=== PATIENT | female | born 1990 | race Caucasian/White ===

== ENCOUNTER 2022-01-23 19:08 | Emergency (ER) | payer MEDICAID, SELFPAY ==
[2022-01-23 19:09] VITALS: BP 115/57; PULSE 97; RESP 20; TEMP 36.6; O2SAT 98; BMI 38.2
--- NOTE | 2022-01-23 19:41 | CM.ED ---
Social Work Note Reason for Referral: No PCP Silvana CASPER in to speak with pt. Pt does have PCP and her PCP is Dr. Davidson. Pt was provided Where to Go When To go Brochure. Sharyn Parsons PARER, [employer]IC
--- NOTE | 2022-01-23 19:43 | ED.VIS.DYS ---
HPI History of Present Illness Chief Complaint: Shortness of Breath Informant: patient Onset/Context/Timing Onset: Weeks (1.5) Context: gradual Timing: Continuous Quality: Positive for Orthopnea Worsened by: Lying flat Relieved by: Albuterol Associated Symptoms Negative for cough, rhinorrhea, post nasal drip, ear pain, fever, sore throat or chills Chest Pain: Positive for Pressure Narrative Narrative: Patient presents with shortness of breath that has been getting worse over the past week and a half. Patient states that it came on gradually. Patient states it has been constant. Patient states it is worse whenever she lays flat. Patient states she was seen at a different emergency department and was given albuterol aerosol there. Patient states that helped. Patient states she has been using her boyfriend's inhaler which also helps. Patient describes her pain as a heaviness and pressure. Patient denies any fevers or chills. Patient denies any cough. Patient states that on her other visit to the emergency department they did a D-dimer which was elevated. Patient states that she had a CTA of her chest done at that time which was negative. [facility] Medical History (Updated 01/23/22 @ 22:[address] Jose Almendarez DO) Endometriosis Home Medications NK 01/23/22 [History Last Taken Unknown] Allergy/AdvReac Type Severity Reaction Status Date / Time caffeine AdvReac Mild tachycardia Verified 01/23/22 19:11 acetaminophen [From Percocet] AdvReac Nausea Verified 01/23/22 19:11 oxycodone [From Percocet] AdvReac Nausea Verified 01/23/22 19:11 Surgical History (Updated 01/23/22 @ 19:[address] Jose Almendarez DO) Hx of laparoscopy Social History Smoking Status: Current every day smoker tobacco type: cigarettes ROS ROS ED Constitutional Constitutional ED: Denies chills or fever(s) Eyes Eyes: Reports blurry vision; Denies change in vision ENT ENT ED: Denies rhinorrhea or sore throat Cardiovascular Cardiovascular: Reports chest pain; Denies palpitations Respiratory/Chest Respiratory/Chest: Reports dyspnea; Denies cough Gastrointestinal Gastrointestinal: Denies nausea or vomiting Genitourinary Genitourinary ED: Denies dysuria or hematuria Musculoskeletal Musculoskeletal: Reports neck pain; Denies back pain Integumentary Reports abscess; Denies rash Neurologic Neurologic: Denies headache(s) or weakness Allergic/Immunologic Allergic/Immunologic ED: Denies mouth swelling or urticaria EXAM Physical Exam Const Vital Signs: 01/23/22 19:09 01/23/22 21:23 01/23/22 21:31 Temperature 97.9 F Temperature Source Temporal Pulse Rate 97 74 85 Respiratory Rate 20 H 14 12 Respiratory Pattern Normal Blood Pressure 115/57 L Blood Pressure Mean 76 Pulse Ox 98 Oxygen Delivery Method Room Air Positive well nourished and well developed General Appearance ED: well developed HEENT Reports moist mucous membranes Neck supple and no JVD Resp normal respiratory effort and clear to auscultation bilaterally Cardio regular rate, regular rhythm and no murmurs GI normal to inspection, nondistended, normoactive bowel sounds and non-tender Palpation: soft Extremity normal to inspection General Extremety ED: Negative for edema or tenderness General Extremity: Negative for edema Neuro oriented x3, CN's II-XII intact bilaterally and no sensory deficits noted Sensorium / Orientation: alert Motor Exam: strength 5/5 throughout Psych mental status grossly normal Skin no rashes or lesions noted MDM MDM MDM Narrative Medical decision making narrative: EKG was obtained. On my interpretation, it showed a normal sinus rhythm with a rate of 83. [place] interval, QRS interval, and QTc intervals were all normal. [place] was normal. There are no acute ST or T wave changes. CBC shows a slight anemia with a hemoglobin of 11.6 and hematocrit of 36.4. Comprehensive metabolic profile was within normal limits. High-sensitivity troponin was normal. CTA of the chest was obtained. There is no evidence of pulmonary embolism. There is no infiltrate noted. This was interpreted by the radiologist and reviewed by myself. Patient was given a DuoNeb aerosol here. Patient feels better on reevaluation. Patient was instructed to follow-up with her primary care physician in 5 to 7 days. Patient understood and was agreeable with the plan. All questions were answered. Lab Data Attestation: I reviewed the patient's lab results. Labs: Laboratory Results - last 24 hr 01/23/22 01/23/22 20:02 20:02 WBC 10.1 RBC 3.97 L Hgb 11.6 L Hct 36.4 L MCV 91.7 MCH 29.2 MCHC 31.9 L RDW Std Deviation 45.5 H RDW Coeff of Lico 13.5 Plt Count 240 MPV 10.6 Immature Gran % (Auto) 0.400 Neut % (Auto) 47.4 Lymph % (Auto) 38.0 [place] % (Auto) 10.3 H Eos % (Auto) 3.5 Baso % (Auto) 0.4 Absolute Neuts (auto) 4.8 Absolute Lymphs (auto) 3.84 Nucleated RBC % 0 Sodium 139 Potassium 3.5 Chloride 109 H Carbon Dioxide 21.0 Anion Gap 9 BUN 14 Creatinine 0.80 Estim Creat Clear Calc 93.37 Est GFR (MDRD) Af Amer 109 Est GFR (MDRD) Non-Af 90 BUN/Creatinine Ratio 17.6 Glucose 139 H Calcium 9.0 Total Bilirubin 0.10 L AST 16 ALT 33 Alkaline Phosphatase 58 Troponin I High Sens < 3 L Total Protein 7.0 Albumin 3.4 Globulin 3.6 Albumin/Globulin Ratio 0.9 Radiography Diagnostic Testing: Clinical Impression(s) from Imaging Studies Chest CTA 01/23/22 19:49 IMPRESSION: No demonstrated pulmonary embolism. Note that there is suboptimal density of contrast measuring 234 [place] units in the main pulmonary artery but with significantly decreased density in the bilateral lower lobe segmental arteries which could potentially obscure pulmonary emboli. No secondary findings to suggest pulmonary embolism. Pulmonary embolism is unlikely. No evidence of acute cardiopulmonary disease. Electronically Signed: Yeyo Mckeon DO at 20:56 EDT , EKG Initial EKG: Attestation: I personally reviewed and interpreted this EKG as follows: Interpretation: Sinus Rhythm (83) and No Acute Injury Pattern Discharge Plan Triage Chief Complaint: Shortness of Breath ED Provider: Jose Almendarez Dx/Rx/DC Orders Clinical Impression: Dyspnea, Chest pain Instructions: ED Dyspnea Prescriptions: No Action NK Primary Care Provider: Raul Davidson Referrals: Raul Davidson DO [Primary Care Provider] - 3-5 Days Disposition Disposition: Home, Self Care
--- NOTE | 2022-01-23 19:48 | EKG12_ITS ---
Test Reason : CP Blood Pressure : / mmHG Vent. Rate : 083 BPM Atrial Rate : 083 BPM P-R Int : 150 ms QRS Dur : 098 ms QT Int : 386 ms P-R-T Axes : 030 018 031 degrees QTc Int : 453 ms Normal sinus rhythm Low voltage QRS Borderline ECG Confirmed by GRADY DUFFY, NAOMI ([id number]), general expeditor GENESIS SALINAS ([id number]) on 01/26/2022 8:20:16 AM Referred By: MAEGAN Confirmed By:NAOMI RASMUSSEN MD
--- NOTE | 2022-01-23 19:49 | CT_ITS ---
STUDY: CTA CHEST REASON FOR EXAM: Female, 31 years old. Dyspnea RADIATION DOSAGE (If Supplied By Facility): CTDIvol = ( 11.59 ) mGy, DLP = ( 549.56 ) mGycm TECHNIQUE: The examination was performed with the intravenous administration of IV 100mL Isovue-370. Post-processing of the angiographic images was performed, with multiplanar reformation and 3D reconstruction. Individualized dose optimization techniques were used for this CT. COMPARISON: Chest x-ray 02/02/2013 FINDINGS: Suboptimal density of contrast in the pulmonary arteries and without significant motion; decrease sensitivity of the exam. No pulmonary artery filling defect to suggest pulmonary embolism. There is no evidence of right heart strain. Normal size heart. No pericardial fluid. No mediastinal or hilar lymphadenopathy. No mass or filling defect. No bronchiectasis. No peribronchial thickening. Normal lung volumes without airtrapping. No airspace opacity or abnormal interstitial pattern. No suspicious nodule or mass. There are several, perifissural nodules in the dependent periphery of the right lower lobe, less than 4 mm in maximum diameter, consistent with benign findings. No pleural effusion or pneumothorax. Thyroid gland and base of the neck are within normal limits. No axillary lymphadenopathy. No fracture or focal osseous lesion. Visualized solid and hollow viscus organs are within normal limits of the exam. CT/CTA Chest W/WO Contrast IMPRESSION: No demonstrated pulmonary embolism. Note that there is suboptimal density of contrast measuring 234 [place] units in the main pulmonary artery but with significantly decreased density in the bilateral lower lobe segmental arteries which could potentially obscure pulmonary emboli. No secondary findings to suggest pulmonary embolism. Pulmonary embolism is unlikely. No evidence of acute cardiopulmonary disease. Electronically Signed: Yeyo Mckeon DO at 20:56 EDT ,
[2022-01-23 20:12] LABS: Absolute Lymphocyte Count 3.84 X10^3/uL (0.83-4.51); Absolute Neutrophil Count 4.8 X10^3/uL (2.0-7.7); Basophil# 0.04 X10^3/uL; Basophil% 0.4 % (0-1); Eosinophil# 0.35 X10^3/uL; Eosinophils% 3.5 % (0-5); Hematocrit 36.4 % (37-47); Hemoglobin 11.6 g/dL (12.0-15.0); Lymphocyte # 3.84 X10^3/ul (0.83-4.51); Mean Corp Hgb Conc 31.9 g/dL (32-36); Mean Corpuscular Hgb 29.2 pg (27.0-32.0); Mean Corpuscular Volume 91.7 fL (81-99); Mean Platelet Vol. 10.6 fl (6.2-12.0); Monocyte# 1.04 X10^3/uL; Monocyte% 10.3 % (0-10); NRBC Flagged by Analyzer 0 % (0-5); Neutrophil # 4.79 X10^3/uL (2.7-7.7); Neutrophil % 47.4 % (47-70); Platelet Count 240 K/mm3 (150-450); RBC Distribution Width CV 13.5 % (11.6-14.6); RBC Distribution Width SD 45.5 fl (35.1-43.9); Red Blood Count 3.97 M/mm3 (4.2-5.4); White Blood Count 10.1 K/mm3 (4.4-11.0)
[2022-01-23 20:33] LABS: ALB/GLOB Ratio 0.9 RATIO (0.9-2.4); AST(SGOT) 16 U/L (15-37); Alanine Aminotransfer ALT/SGPT 33 U/L (13-56); Albumin, Serum 3.4 g/dL (3.2-5.0); Alkaline Phosphatase 58 U/L (45-117); Anion Gap 9 (5-15); BUN 14 mg/dL (7-18); BUN/Creat Ratio 17.6 RATIO (10-20); Chloride 109 mmol/L (98-107); EST Glomerular Filtration Rate 90 mL/min (>60); Est Glom Filt Rate - Afr Amer 109 mL/min (>60); Estimated Creatinine Clearance 93.37 ml/min; Globulin 3.6 g/dL (2.2-4.2); Glucose 139 mg/dL (74-106); Potassium 3.5 mmol/L (3.5-5.1); Sodium Level 139 mmol/L (136-145); Troponin-I HS < 3 pg/mL (3.0-54.0)
[2022-01-23] MEDS: 0.9% Normal Saline 1,000 ML 1000 ML IV (20:34)
[2022-01-23 21:23] VITALS: PULSE 74; RESP 14
[2022-01-23] MEDS: Ipratropium/Albuterol Sulfate 3 ML AMPUL.NEB INHALATION (21:28)
[2022-01-23 21:31] VITALS: PULSE 85; RESP 12
== END 2022-01-23 22:11 | disposition home or self-care (01) ==
PROVIDERS: Emergency Provider Emergency Medicine; PCP Student in an Organized Health Care Education/Training Program; Visit Provider Emergency Medicine
DX: R06.00 Dyspnea, unspecified (principal); R07.9 Chest pain, unspecified; D64.9 Anemia, unspecified; F17.210 Nicotine dependence, cigarettes, uncomplicated
CPT/HCPCS: 71275; 80053; 84484; 85025; 93005; 94640; 96360; 99284; J7030; Q9967; A4216

== ENCOUNTER 2023-10-12 16:46 | Emergency (ER) | payer OTHER, MEDICAID, SELFPAY ==
[2023-10-12 16:47] VITALS: BP 116/66; PULSE 83; RESP 14; TEMP 36.2; O2SAT 97; BMI 38.8
--- NOTE | 2023-10-12 17:20 | RAD_ITS ---
STUDY: X-RAY CHEST REASON FOR EXAM: Female, 33 years old. SOB TECHNIQUE: AP portable COMPARISON: February 02, 2023 FINDINGS: Mild nonspecific bilateral perihilar interstitial thickening possibly inflammatory.. There is no demonstrated pleural abnormality. Normal size heart. Normal mediastinum and liliana. Normal visualized pulmonary arteries. Normal visualized aortic arch and descending thoracic aorta. Normal visualized thoracic spine. Normal visualized ribs, clavicles, and shoulders. There is no demonstrated abnormality of the visualized soft tissue structures of the upper abdomen. RAD/Chest 1 View (Portable) IMPRESSION: Mild nonspecific bilateral perihilar interstitial thickening.. No focal infiltration. Electronically Signed: Chad Goncalves MD at 18:02 EDT ,
[2023-10-12 17:24] LABS: Absolute Lymphocyte Count 3.56 X10^3/uL (0.83-4.51); Absolute Neutrophil Count 5.6 X10^3/uL (2.0-7.7); Basophil# 0.05 X10^3/uL; Basophil% 0.5 % (0-1); Eosinophil# 0.18 X10^3/uL; Eosinophils% 1.7 % (0-5); Hematocrit 37.5 % (37-47); Lymphocyte # 3.56 X10^3/ul (0.83-4.51); Lymphocyte % 34.4 % (19-41); Mean Corpuscular Hgb 29.2 pg (27.0-32.0); Mean Corpuscular Volume 91.2 fL (81-99); Mean Platelet Vol. 10.3 fl (6.2-12.0); Monocyte# 0.91 X10^3/uL; Monocyte% 8.8 % (0-10); NRBC Flagged by Analyzer 0 % (0-5); Neutrophil # 5.62 X10^3/uL (2.7-7.7); Neutrophil % 54.2 % (47-70); Platelet Count 276 K/mm3 (150-450); RBC Distribution Width CV 13.5 % (11.6-14.6); RBC Distribution Width SD 45.1 fl (35.1-43.9); Red Blood Count 4.11 M/mm3 (4.2-5.4); White Blood Count 10.4 K/mm3 (4.4-11.0)
[2023-10-12 17:35] VITALS: BP 116/66; PULSE 83; RESP 14; TEMP 36.2; O2SAT 97
--- NOTE | 2023-10-12 17:38 | ED.VIS.DYS ---
HPI History of Present Illness Chief Complaint: Shortness of Breath Narrative Narrative: 33-year-old female, smoker, presents from her primary care provider's office with concern for pulmonary embolism. She states that 2 weeks ago she contracted COVID, and is still coughing, and feels short of breath. She reports increasing shortness of breath, dizziness, and was 95% on room air and her primary care provider's office. She denies any leg swelling, no exacerbating or alleviating factors. She states she has not been able to smoke over the last few days because that is when her increased shortness of breath and dizziness increased. PFSH PFS Medical History Endometriosis Home Medications NK 01/23/22 [History Last Taken Unknown] Allergy/AdvReac Type Severity Reaction Status Date / Time caffeine AdvReac Mild tachycardia Verified 10/12/23 16:48 acetaminophen [From Percocet] AdvReac Nausea Verified 10/12/23 16:48 oxycodone [From Percocet] AdvReac Nausea Verified 10/12/23 16:48 Surgical History Hx of laparoscopy Social History Smoking Status: Current every day smoker tobacco type: cigarettes ROS ROS ED ROS Narrative Constitutional: No fever, no chills. HEENT: No sore throat. No neck pain. No loss of vision. No rhinorrhea. Cardiovascular: No chest pain. No palpitations. No pedal edema. Respiratory: Positive productive cough, increasing shortness of breath. Abdominal: No abdominal pain. No nausea. No vomiting. Genitourinary: No dysuria. No hematuria. Musculoskeletal: No myalgias. No arthralgias. Neurologic: No headaches. Positive dizziness and lightheadedness. Skin: No rash. No change in color. Psychiatric: No depression. No anxiety. EXAM Physical Exam Narrative Exam Narrative: Afebrile. Vital signs noted. HEENT: Normocephalic. Atraumatic. PERRL, EOMI. Neck soft and supple. No point tenderness or step off. Cardiovascular: Regular rate and rhythm. No murmurs, rubs, or gallops appreciated. Respiratory: No tachypnea. Lungs clear to auscultation bilaterally. Gastrointestinal: Abdomen soft, nontender, with normoactive bowel sounds. No rebound or guarding. Neurological: Awake. Alert. Nonfocal, nonlateralizing. Skin: No rash. Normal color. No pallor. Musculoskeletal: No pedal edema. Full range of motion extremities. Const Vital Signs: 10/12/23 16:47 10/12/23 17:35 10/12/23 17:35 Temperature 97.2 F L 97.2 F L Temperature Source Temporal Temporal Pulse Rate 83 83 Respiratory Rate 14 14 Blood Pressure 116/66 116/66 Blood Pressure Mean 82 82 Pulse Ox 97 97 97 Oxygen Delivery Method Room Air Room Air Room Air 10/12/23 17:35 Temperature Temperature Source Pulse Rate Respiratory Rate Blood Pressure Blood Pressure Mean Pulse Ox 97 Oxygen Delivery Method Room Air MDM MDM MDM Narrative Medical decision making narrative: Nursing protocol labs were ordered. This included D-dimer. Her pulse ox is 97% on room air here. I have low suspicion for pulmonary embolism because she is not tachycardic or hypoxic. Smoking cessation was discussed. I reviewed her laboratory work and she has normal white count of 10.4, hemoglobin normal at 12.0, hematocrit 37.5, platelet count normal at 276. D-dimer is normal at 0.30. I do not feel that she needs a CTA of the chest given her negative D-dimer. I have low suspicion for pulmonary embolism as stated previously. Review of her BMP shows normal sodium of 139, potassium 3.8, glucose appropriately elevated at 95 with a normal anion gap of 6. Chest x-ray in 1 view interpreted by myself independently shows no evidence of consolidation or pneumothorax. I reviewed the radiology report which confirms my independent interpretation. EKG obtained and interpreted by myself demonstrates normal sinus rhythm at 76 bpm without ectopy or acute ST changes. No STEMI. At this point in time, I am unsure as to the cause of her dyspnea and subjective shortness of breath with dizziness, but I do feel that she can be discharged to follow-up with her primary care provider. Once again, I do not feel that she needs imaging for pulmonary embolism given her negative D-dimer, not tachycardic, not hypoxic. Disposition is discharged home in stable condition. Return instructions to the emergency department were reviewed. History & Record Review Discussion w/independent historian: Patient Additional record(s) reviewed:: Prior ED visit Lab Data Attestation: I reviewed the patient's lab results. Labs: Laboratory Results - last 24 hr 10/12/23 17:15 WBC 10.4 RBC 4.11 L Hgb 12.0 Hct 37.5 MCV 91.2 MCH 29.2 MCHC 32.0 RDW Std Deviation 45.1 H RDW Coeff of Lico 13.5 Plt Count 276 MPV 10.3 Immature Gran % (Auto) 0.400 Neut % (Auto) 54.2 Lymph % (Auto) 34.4 [place] % (Auto) 8.8 Eos % (Auto) 1.7 Baso % (Auto) 0.5 Absolute Neuts (auto) 5.6 Absolute Lymphs (auto) 3.56 Nucleated RBC % 0 D-Dimer Quant (PE/DVT) 0.30 Sodium 139 Potassium 3.8 Chloride 104 Carbon Dioxide 29.0 Anion Gap 6 BUN 10 Creatinine 0.79 Estim Creat Clear Calc 124.66 Est GFR (MDRD) Af Amer 108 Est GFR (MDRD) Non-Af 90 BUN/Creatinine Ratio 12.6 Glucose 95 Calcium 9.3 Radiography Diagnostic Testing: Clinical Impression(s) from Imaging Studies Chest X-Ray 10/12/23 17:20 IMPRESSION: Mild nonspecific bilateral perihilar interstitial thickening.. No focal infiltration. Electronically Signed: Chad Goncalves MD at 18:02 EDT Reading Location ID and State: [address] [place] [address] Tel , Service support , Discharge Plan Triage Chief Complaint: Shortness of Breath ED Provider: Peterson Lira Dx/Rx/DC Orders Clinical Impression: Shortness of breath, Dyspnea Instructions: ED Dyspnea Prescriptions: No Action NK Primary Care Provider: Raul Davidson Referrals: Raul Davidson, DO [Primary Care Provider] - 1 Week if not improving Activity Restrictions/Additional Instructions: Stop smoking Disposition Disposition: Home, Self Care
[2023-10-12 17:40] LABS: Anion Gap 6 (5-15); BUN 10 mg/dL (7-18); BUN/Creat Ratio 12.6 RATIO (10-20); Calcium,Total 9.3 mg/dL (8.5-10.1); Chloride 104 mmol/L (98-107); Creatinine, Serum 0.79 mg/dL (0.55-1.02); EST Glomerular Filtration Rate 90 mL/min (>60); Est Glom Filt Rate - Afr Amer 108 mL/min (>60); Estimated Creatinine Clearance 124.66 ml/min; Glucose 95 mg/dL (74-106); Potassium 3.8 mmol/L (3.5-5.1); Sodium Level 139 mmol/L (136-145)
--- NOTE | 2023-10-12 17:41 | EKG12_ITS ---
Test Reason : SOB Blood Pressure : / mmHG Vent. Rate : 076 BPM Atrial Rate : 076 BPM P-R Int : 178 ms QRS Dur : 094 ms QT Int : 404 ms P-R-T Axes : 027 000 021 degrees QTc Int : 454 ms Normal sinus rhythm Normal ECG Confirmed by Yeyo Fonseca ([id number]), editor in chief BRANDON GREENE ([id number]) on 10/14/2023 2:05:16 PM Referred By: Confirmed By:Yeyo Fonseca
[2023-10-12 19:38] VITALS: BP 101/53; PULSE 83; RESP 14; TEMP 36.2; O2SAT 97
[2023-10-12 19:42] VITALS: O2SAT 97
--- OUTSIDE RECORDS SUMMARY | 2023-10-12 23:05 | XMS RPT_ITS | CCD ---
Author Name Unknown Address [address] [place] [address] Organization [facility] Care Team Providers Care Supervisor Statement Clerks Name Role Phone ANNALeida HODA HeartDarius Unavailable Unavailable PHYSICIAN, NONE Unavailable Unavailable Ralu Campa DO Primary Care Provider [phone] Raul Campa DO Primary Care Provider [phone] ESPAÑA, LISE LOCAL SUPERINTENDENT%C Consulting Unavailable ESPAÑA, LISE LOCAL SUPERINTENDENT%C Referring Unavailable RAMAN BURNS C Admitting Unavailable GRANT RAMAN C Primary Care Unavailable RAMAN BURNS C Attending Unavailable PROVIDER, UNKNOWN Consulting Unavailable ESPAÑA, LISE LOCAL SUPERINTENDENT%C Referring Unavailable IVA MCNEIL KLUEVER Admitting Unavail able TARUN KILWAY KLUEVER Primary Care Unavail able TARUN KILTRISTEN KLUEVER Attending Unavail able ESPAÑA, LISE LOCAL SUPERINTENDENT%C Consulting Unavailable PROVIDER, UNKNOWN Consulting Unavailable JAYCEE ADAMS Attending Unavailable LOKESH RAUL L Primary Care Unavailable JAYCEE ADAMS Referring Unavailable RAUL CAMPA Primary Care Unavailable JAYCEE ADAMS Attending Unavailable LOKESH RAUL Humberto Primary Care Unavailable ESPAÑA, LISE Referring Unavailable LOKESH, RAUL L Primary Care Unavailable LOKESH RAUL L Attending Unavailable LOKESH RAUL L Referring Unavailable LOKESH RAUL Humberto Primary Care Unavailable RAUL CAMPA Primary Care Unavailable SISI TOBAR Referring Unavailable CAMPA, RAUL Humberto Primary Care Unavailable SONIA CASTRO Attending Unavailable CAMPA, RAUL L Primary Care Unavailable ADAM, SISI Referring Unavailable SISI TOBAR Attending Unavailable LOKESH, RAUL L Primary Care Unavailable Allergies Allergy Classification Reported Allergen(s) Allergy Type Date of Onset Reaction(s) Facility (16 sources) Caffeine; Translations: [CAFFEINE] Drug Allergy 10-13-2012 Unknown [facility] (1 source) Caffeine Drug Allergy [facility] (1 source) Morphine Drug Allergy [facility] Medications Current Medications Medication Drug Class(es) Dates Sig (Normalized) Sig (Original) pregabalin 25 mg oral capsule (2 sources) Start: 09-28-2023 End: 10-28-2023 take 1 capsule by mouth twice daily pregabalin (LYRICA) 25 mg capsule Indications: Chronic bilateral low back pain, unspecified whether sciatica present , Pain in both thighs , Bilateral leg paresthesia Take 1 capsule by mouth two times a day for 30 days. 60 capsule 1 09/28/2023 10/28/2023 Active Completed/Discontinued Medications Medication Drug Class(es) Dates Sig (Normalized) Sig (Original) gabapentin 100 mg oral capsule (11 sources) Anti-epileptic Agent Start: 11-03-2022 End: 01-07-2024 take 1 capsule by mouth in the morning, then take 3 capsules by mouth at bedtime gabapentin (NEURONTIN) 100 mg capsule Indications: Chronic bilateral low back pain, unspecified whether sciatica present , Exacerbation of chronic back pain Take 1 capsule by mouth in the morning. Take 3 capsules by mouth at bedtime. 56 capsule 3 06/20/2023 09/28/2023 Discontinued Problems Active Problems Problem Classification Problem Date Documented Date Episodic/Chronic Anxiety disorders (13 sources) Mixed anxiety and depressive disorder; Translations: [Anxiety disorder, unspecified] Onset: 11-03-2022 Chronic Diseases of white blood cells (2 sources) Leukocytosis; Translations: [Elevated white blood cell count, unspecified] Onset: 10-07-2022 Chronic Disorders of lipid metabolism (2 sources) Hypertriglyceridemia; Translations: [Pure hyperglyceridemia] Onset: 08-27-2023 06-23-2023 Chronic Headache; including migraine (15 sources) Migraine; Translations: [Migraine, unspecified, not intractable, without status migrainosus] Onset: 12-14-2012 12-14-2012 Chronic Immunizations and screening for infectious disease (1 source) Patient encounter status; Translations: [Encounter for screening for human papillomavirus (HPV)] Episodic Menstrual disorders (1 source) Menorrhagia; Translations: [Excessive and frequent menstruation with regular cycle] Chronic Miscellaneous mental health disorders (8 sources) Psychophysiologic insomnia; Translations: [Insomnia due to other mental disorder] Onset: 11-03-2022 Chronic Mood disorders (1 source) Unspecified mood [affective] disorder; Translations: [Mood insomnia (HCC)] Onset: 11-03-2022 Chronic Mood disorders (1 source) Mood disorders; Translations: [Anxiety and depression] Onset: 11-03-2022 Other connective tissue disease (1 source) Pain of bilateral thighs; Translations: [Pain in right thigh] 09-28-2023 Episodic Other nervous system disorders (2 sources) Other chronic pain; Translations: [Chronic bilateral low back pain, unspecified whether sciatica present] Onset: 11-08-2022 Chronic Other nervous system disorders (1 source) Paresthesia of left lower limb; Translations: [Paresthesia of skin] 09-28-2023 Episodic Other nervous system disorders (1 source) Paresthesia of lower extremity; Translations: [Paresthesia of skin] 09-28-2023 Episodic Other nutritional; endocrine; and metabolic disorders (15 sources) Obese class I; Translations: [Obesity, unspecified] Onset: 01-17-2013 01-17-2013 Chronic Other screening for suspected conditions (not mental disorders or infectious disease) (1 source) Cancer cervix screening status; Translations: [Encounter for screening for malignant neoplasm of cervix] Episodic Other skin disorders (1 source) Hidradenitis suppurativa; Translations: [Hidradenitis suppurativa] Episodic Other upper respiratory disease (15 sources) Allergic rhinitis; Translations: [Allergic rhinitis, unspecified] Onset: 01-17-2013 01-17-2013 Chronic Unclassified (1 source) Chronic bilateral low back pain, unspecified whether sciatica present; Translations: [Chronic bilateral low back pain, unspecified whether sciatica present] Onset: 11-08-2022 Past or Other Problems Problem Classification Problem Date Documented Date Episodic/Chronic Cancer of cervix (15 sources) Atypical squamous cells of undetermined significance on cervical Papanicolaou smear; Translations: [Atypical squamous cells of undetermined significance on cytologic smear of cervix (ASC-US)] Onset: 11-26-2015 11-26-2015 Episodic Cancer of other female genital organs (15 sources) Cervicovaginal cytology: Low grade squamous intraepithelial lesion; Translations: [Low grade squamous intraepithelial lesion on cytologic smear of vagina (LGSIL)] Onset: 12-17-2016 12-17-2016 Episodic Residual codes; unclassified (15 sources) Tobacco user; Translations: [Tobacco use] Onset: 01-17-2013 01-17-2013 Episodic Spondylosis; intervertebral disc disorders; other back problems (8 sources) Chronic low back pain; Translations: [Chronic bilateral low back pain, unspecified whether sciatica present] Onset: 11-08-2022 Episodic Results Test Name Value Interpretation Reference Range Facil ity Vital Signs Date Time Vital Sign Value Performing Clinician Faci lity 06-20-2023 15:58-0500 Body height 168 cm Sisi Tobar VP PRODUCT MARKETING.ACCOUNTING ADMINISTRATIVE ASSISTANT Work Phone: [facility] 06-20-2023 15:58-0500 Body weight 107.5 kg Sisi Tobar VP PRODUCT MARKETING.ACCOUNTING ADMINISTRATIVE ASSISTANT Work Phone: [facility] 06-20-2023 15:58-0500 Diastolic blood pressure 82 mm[Hg] Sisi Tobar VP PRODUCT MARKETING.ACCOUNTING ADMINISTRATIVE ASSISTANT Work Phone: [facility] 06-20-2023 15:58-0500 Heart rate 93 /min Sisi Tobar VP PRODUCT MARKETING.ACCOUNTING ADMINISTRATIVE ASSISTANT Work Phone: [facility] 06-20-2023 15:58-0500 SaO2% (BldA) [Mass fraction] 97 % Sisi Tobar VP PRODUCT MARKETING.ACCOUNTING ADMINISTRATIVE ASSISTANT Work Phone: [facility] 06-20-2023 15:58-0500 Systolic blood pressure 108 mm[Hg] Sisi Tobar VP PRODUCT MARKETING.ACCOUNTING ADMINISTRATIVE ASSISTANT Work Phone: [facility] 03-18-2022 14:22-0400 Body height 167.6 cm Sonia Castro MD Work Phone: [facility] 03-18-2022 14:22-0400 Body weight 104.69 kg Sonia Castro MD Work Phone: [facility] 03-18-2022 14:22-0400 Diastolic blood pressure 68 mm[Hg] Sonia Castro MD Work Phone: [facility] 03-18-2022 14:22-0400 Systolic blood pressure 100 mm[Hg] Sonia Castro MD Work Phone: [facility] Encounters Encounter Date Encounter Type Care Provider Facility Start: 10-12-2023 End: 10-12-2023 ambulatory Nurse Intm/Famp Triage [facility] Work Phone: [facility] Start: 10-12-2023 End: 10-12-2023 Follow-up encounter Nurse Intm/Famp Triage [facility] Work Phone: Nurse Phone Triage Procedures Date Procedure Procedure Detail Performing Clinician Start: 06-20-2021 Adult depression screening assessment Sonia Castro MD Work Phone: Plan of Treatment Date Care Activity Detail Author Start: 07-22-2028 Screening for malign ant neoplasm of cervix [facility] Start: 03-18-2027 HPV TESTING HPV TESTING [facility] Start: 03-18-2027 PAP TESTING PAP TESTING [facility] Start: 01-28-2026 Urine microalbumin profile [facility] Start: 10-11-2024 Covid-19 Vaccine ( season) Covid-19 Vaccine ( season) [facility] Immunizations Immunization Date Immunization Notes Care Provider Fa debora 05-26-2018 influenza virus vaccine, unspecified formulation Sonia Castro MD Work Phone: [facility] 04-21-2016 influenza, injectabl e, quadrivalent, contains preservative Sonia Castro MD Work Phone: [facility] 01-29-2016 tetanus toxoid, redu celestine diphtheria toxoid, and acellular pertussis vaccine, adsorbed Sonia Castro MD Work Phone: [facility] Work Phone: 01-17-2013 tetanus toxoid, redu celestine diphtheria toxoid, and acellular pertussis vaccine, adsorbed Sonia Castro MD Work Phone: [facility] Work Phone: 10-11-2012 hepatitis B vaccine, adult dosage Sonia Castro MD Work Phone: [facility] 10-11-2012 hepatitis B vaccine, unspecified formulation Sonia Castro MD Work Phone: [facility] 10-05-2012 influenza virus vaccine, unspecified formulation Sonia Castro MD Work Phone: [facility] Payers Date Payer Category Payer Unknown [id number] 2022 Private Health Insurance [id number] 2022 Private Health Insurance [id number] 2019 Medicaid [id number] 2018 Unknown [id number] 1992 Unknown [id number] 1992 Unknown [id number] 1992 Unknown [id number] Social History Date Type Detail Facility Start: 04-06-2018 End: 09-24-2022 Tobacco smoking status NHIS Light tobacco smoker [facility] Work Phone: History of tobacco use Cigarette Smoker C [facility] Work Phone: Start: 04-06-2018 End: 09-24-2022 Tobacco use and exposure Smokeless tobacco non-user [facility] Work Phone: Start: 03-18-2022 End: 10-12-2023 Alcohol intake Current non-drinker of alcohol (finding) [facility] Start: 06-20-2021 End: 09-23-2022 History SDOH Alcohol Frequency 1 [facility] Start: 06-20-2021 End: 09-23-2022 History SDOH Social Connections Phone 5 [facility] Start: 06-20-2021 End: 09-23-2022 History SDOH Social Connections Get Together 2 [facility] Start: 06-20-2021 End: 09-23-2022 History SDOH Social Connections Living 8 [facility] Start: 06-20-2021 History SDOH Physica l Activity MPS 6 [facility] Start: 06-20-2021 History SDOH Financial 4 [facility] Start: 04-01-2020 Education 15 [facility] Start: 01-01-2016 End: 09-24-2022 Tobacco Comment smokes 1-2 cigarettes per day [facility] Start: 1990 Sex Assigned At Female C [facility] Start: 03-08-2022 End: 03-18-2022 Exposure to SARS-CoV-2 (event) Not sure [facility] Start: 09-23-2022 History SDOH Social Connections Phone 3 [facility] Start: 07-06-2020 End: 09-22-2022 History of Social function [facility] Start: 07-06-2020 End: 09-22-2022 Social connection and isolation panel [facility] Do you belong to any clubs or organizations such as latter-day groups, unions, fraternal or athletic groups, or school groups? No [facility] Are you now , , , , never or living with a partner? Living with partner [facility] How often to you hav e a drink containing alcohol? Monthly or less [facility] How many standard dr inks containing alcohol do you have on a typical day? 1 or 2 [facility] How often do you hav e 6 or more drinks on 1 occasion? Never [facility] How hard is it for y ou to pay for the very basics like food, housing, medical care, and heating Somewhat hard [facility] Adult Depression Screening Assessment 6 [facility] Work Phone: Do you feel stress - tense, restless, nervous, or anxious, or unable to sleep at night because your mind is troubled all the time - these days [OSQ] Very much [facility] (I/We) worried wheth er (my/our) food would run out before (I/we) got money to buy more. Never true [facility] Start: 03-10-2020 Gender identity Identifies as female gender (finding) [facility] Are you now , , , , never or living with a partner? [facility] How hard is it for y ou to pay for the very basics like food, housing, medical care, and heating Not very hard [facility] Clinical Notes 12-24-2016 to 10-12-2023 Telephone Encounter - Katrin Mcintosh RN - 10/12/2023 9:53 AM Raul Thorne DO - 09/28/2023 4:41 PM ESTTelephone Encounter - Adilia Navarro OCCA - 06/24/2023 9:17 AM EST Note Date & Type Note Facility 10-12-2023 Miscellaneous Notes Patient calls for lingering Covid symptoms. Nurse triage completed. Protocol recommends see provider within 24 hours. Appt scheduled. Care advice reviewed. Patient verbalized understanding. Reason for Disposition [1] PERSISTING SYMPTOMS OF COVID-19 AND [2] symptoms WORSE Answer Assessment - Initial Assessment Questions 1. COVID-19 ONSET: Two weeks ago 2. DIAGNOSIS CONFIRMATION: At home test. 3. MAIN SYMPTOM:Exhaustion is biggest concern. SOB with climbing stairs. Slight cough. Patient has had Covid numerous times from [place] [employer] and symptoms have never lingered this long or have atleast started to improve. 4. SYMPTOM ONSET:Two weeks ago 5. [id number]: Exhaustion is getting worse Body is worn out. Other symptoms have remained the same. 6. RECENT MEDICAL VISIT: Not evaluated. 7. COUGH: Yes but not productive. 8. FEVER: No 9. BREATHING DIFFICULTY: - MILD: No SOB at rest, mild SOB with walking, speaks normally in sentences, can lie down, no retractions, pulse < 100. Reports winded with climbing stairs. Has to rest once reaches the top. 10. OTHER SYMPTOMS: Fatigue, weakness, nerve pain per usual, No headaches. 11. HIGH RISK DISEASE: Obesity. No asthma, heart or lung disease, weak immune system. 12. VACCINE: NA 13. : No, Patient reports to a trans man. 14. O2 SATURATION MONITOR: Hasn't done that Protocols used: Covid-19 -Persisting Symptoms Follow-up [id number] documented in this encounter [facility] 09-28-2023 Note HNO ID: [id number] Author: RAUL CAMPA DO Service: ? Author Type: Physician Type: Progress Notes Filed: 09/28/2023 17:10 Note Text: In lieu of an in person visit due to coronavirus COVID 19 pandemic concerns, a virtual visit was performed with patient. Patient is aware that I am not fully able to assess symptoms and do a full physical exam including vital signs in office at this time. Patient consents to the visit. VIRTUAL VISIT PROGRESS NOTE This is a virtual visit using [employer] Zoom Video Visit. It required patient-provider interaction for the medical decision making as documented below. I have communicated my name and active licensure. The patient's identity and physical location were verified at the time of this visit. Either the patient or their legal strategic partnership representative has been informed of the risks and benefits of -- and alternatives to -- treatment through a remote evaluation and consents to proceed with the evaluation remotely. Lety Singh is a 33 year old female seen for follow up. Currently in the process of going through Covid 19 infection, seen as a virtual visit due to this. Chronic anxiety and insomnia x years, has been taking Zoloft 50 mg and Trazodone 50 mg to see if this is effective. She feels they are somewhat helpful but states the trazodone is kind of like melatonin, it makes me drowsy but doesn't make me fall asleep well yet at this dose. + increasing anxiety symptoms, increasing insomnia symptoms she feels are due to anxiety symptoms. Not severe depression, + lack of motivation, no SI or HI. + increased symptoms in the evening Low back pain- the back pain seems to be stable but still present. she feels that the worse symptoms are with the radiation of burning discomfort into b/l thighs and hips. Has had xray lumbar which were normal. Hasn't completed PHYSICAL THERAPY yet. Hasn't had MRI lumbar yet. No other new symptoms. No loss of bowel or bladder function. Has been taking gabapentin without relief. HISTORY REVIEWED (electronic chart updated): PAST MEDICAL HISTORY Diagnosis Date Allergic rhinitis Atypical squamous cells of undetermined significance (ASCUS) on Papanicolaou smear of cervix 11/26/2015 not enough cells for HPV, repeat in 1 year Chlamydia Migraines PAST SURGICAL HISTORY Procedure Laterality Date LAPS ABD PRTMANDOMENTUM DX W/WO SPEC BR/WA SPX 10/30/14 Laparoscopy FAMILY HISTORY Problem Relation Age of Onset No Known Problems Mother other (Other) Father Unknown HX No Known Problems Maternal Grandmother Cancer Maternal Grandfather ADD/ADHD Brother No Known Problems Daughter No Known Problems Son Social History Tobacco Use Smoking status: Light Smoker Years: 4 Types: Cigarettes Smokeless tobacco: Never Tobacco comments: smokes 1-2 cigarettes per day Vaping Use Vaping Use: Never used Substance Use Topics Alcohol use: No Drug use: No Current Outpatient Medications Medication Sig gabapentin (NEURONTIN) 100 mg capsule Take 1 capsule by mouth in the morning. Take 3 capsules by mouth at bedtime. traZODone (DESYREL) 50 mg tablet Take 1 tablet by mouth daily at bedtime. sertraline (ZOLOFT) 50 mg tablet Take 1 tablet by mouth once daily. No current facility-administered medications for this visit. ALLERGIES Allergen Reactions Caffine [Caffeine] Unknown States has blurry vision and feels like she is going to pass out. 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 D/c Gabapentin, start on lyrica. Okay to titrate this up as needed Consider Seroquel instead of trazodone if insomnia is still a struggle despite medication change Consider starting PHYSICAL THERAPY to see if improvement of symptoms. There are no Patient Instructions on file for this visit. I spent a total of 36 minutes on the date of the service which included preparing to see the patient, [id number] patient care, completing clinical documentation, obtaining and/or reviewing separately obtained history, counseling and educating the patient/family/caregiver, and ordering medications, tests, or procedures Raul Campa DO [facility] 09-28-2023 History of Presen t illness Narrative In lieu of an in person visit due to coronavirus COVID 19 pandemic concerns, a virtual visit was performed with patient. Patient is aware that I am not fully able to assess symptoms and do a full physical exam including vital signs in office at this time. Patient consents to the visit. VIRTUAL VISIT PROGRESS NOTE This is a virtual visit using [employer] Video Visit. It required patient-provider interaction for the medical decision making as documented below. I have communicated my name and active licensure. The patient's identity and physical location were verified at the time of this visit. Either the patient or their legal strategic partnership representative has been informed of the risks and benefits of -- and alternatives to -- treatment through a remote evaluation and consents to proceed with the evaluation remotely. Lety Singh is a 33 year old female seen for follow up. Currently in the process of going through Covid 19 infection, seen as a virtual visit due to this. Chronic anxiety and insomnia x years, has been taking Zoloft 50 mg and Trazodone 50 mg to see if this is effective. She feels they are somewhat helpful but states the trazodone is kind of like melatonin, it makes me drowsy but doesn't make me fall asleep well yet at this dose. + increasing anxiety symptoms, increasing insomnia symptoms she feels are due to anxiety symptoms. Not severe depression, + lack of motivation, no SI or HI. + increased symptoms in the evening Low back pain- the back pain seems to be stable but still present. she feels that the worse symptoms are with the radiation of burning discomfort into b/l thighs and hips. Has had xray lumbar which were normal. Hasn't completed PHYSICAL THERAPY yet. Hasn't had MRI lumbar yet. No other new symptoms. No loss of bowel or bladder function. Has been taking gabapentin without relief. HISTORY REVIEWED (electronic chart updated): PAST MEDICAL HISTORY Diagnosis Date Allergic rhinitis Atypical squamous cells of undetermined significance (ASCUS) on Papanicolaou smear of cervix 11/26/2015 not enough cells for HPV, repeat in 1 year Chlamydia Migraines PAST SURGICAL HISTORY Procedure Laterality Date LAPS ABD PRTM&OMENTUM DX W/WO SPEC BR/WA SPX 10/30/14 Laparoscopy FAMILY HISTORY Problem Relation Age of Onset No Known Problems Mother other (Other) Father Unknown HX No Known Problems Maternal Grandmother Cancer Maternal Grandfather ADD/ADHD Brother No Known Problems Daughter No Known Problems Son Social History Tobacco Use Smoking status: Light Smoker Years: 4 Types: Cigarettes Smokeless tobacco: Never Tobacco comments: smokes 1-2 cigarettes per day Vaping Use Vaping Use: Never used Substance Use Topics Alcohol use: No Drug use: No Current Outpatient Medications Medication Sig gabapentin (NEURONTIN) 100 mg capsule Take 1 capsule by mouth in the morning. Take 3 capsules by mouth at bedtime. traZODone (DESYREL) 50 mg tablet Take 1 tablet by mouth daily at bedtime. sertraline (ZOLOFT) 50 mg tablet Take 1 tablet by mouth once daily. No current facility-administered medications for this visit. ALLERGIES Allergen Reactions Caffine [Caffeine] Unknown States has blurry vision and feels like she is going to pass out. 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 D/c Gabapentin, start on lyrica. Okay to titrate this up as needed Consider Seroquel instead of trazodone if insomnia is still a struggle despite medication change Consider starting PHYSICAL THERAPY to see if improvement of symptoms. There are no Patient Instructions on file for this visit. I spent a total of 36 minutes on the date of the service which included preparing to see the patient, [id number] patient care, completing clinical documentation, obtaining and/or reviewing separately obtained history, counseling and educating the patient/family/caregiver, and ordering medications, tests, or procedures Raul Campa DO documented in this encounter [facility] 07-22-2023 Note HNO ID: [id number] Author: Sonia Castro MD Service: ? Author Type: Physician Type: Progress Notes Filed: 07/28/2023 8:28 AM Note Text: Inventory Coordinator offered: Patient declines. Lety is a 33 year old who presents for an annual gynecologic exam without complaints. Menses: cycles every 28 days and 4-5 days of flow. First 3 days are heavy Contraception: none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 non-focal EXTREMITIES: normal ASSESSMENT/PLAN: 1) Health maintenance: Pap done with reflex HPV. Nutrition, exercise and routine health maintenance exams reviewed. HPV vaccine: discussed and patient will consider. Hidradenitis suppurative: Pt reports persistent despite treatment with PCP. Recommend consultation with Dr. Henderson. 2) Contraception: none. Contraceptive options reviewed and information provided. Menorrhagia: Pelvic US 2019 normal. Known endometriosis. Check CBC and TSH. Discussed treatment options and recommend trying Mirena IUD. She is considering. Discussed option for Lysteda as well. 3) STD screening: Declined STD check. 4) Follow up one year or sooner as needed Sonia Castro DO documented in this encounter [facility] documented as of this encounter (statuses as of 03/18/2022) [facility]2017 History of Past illness Narrative* Problem Noted Date Resolved Date Rubella non-immune status, antepartum 12/24/2016 04/26/2017 Late care affecting 7 04/26/2017 Supervision of high risk in third trim fabian 12/17/2016 04/26/2017 Tobacco use in , antepartum 12/17/2016 04/26/2017 Short interval between pregn ancies affecting in third trimester, antepartum 12/17/2016 04/26/2017 Encounter for supervision of normal in third trimester 09/24/2015 04/26/2017 Nausea/vomiting in 09/24/2015 Overview: When improved will need early GCT. Bronwyn Baird, Obesity in 09/24/2015 04/26/2017 Tobacco smoking affecting in first tri mester 09/24/2015 04/26/2017 Overview: Smoking cessation encouraged. Bronwyn Baird DO documented as of this encounter (statuses as of 09/28/2022) [facility] History of Past illness Narrative* Problem Noted Date Resolved Date Rubella non-immune status, antepartum 12/24/2016 04/26/2017 Late care affecting 7 04/26/2017 Supervision of high risk in third trim fabian 12/17/2016 04/26/2017 Tobacco use in , antepartum 12/17/2016 04/26/2017 Short interval between pregn ancies affecting in third trimester, antepartum 12/17/2016 04/26/2017 Encounter for supervision of normal in third trimester 09/24/2015 04/26/2017 Nausea/vomiting in 09/24/2015 Overview: When improved will need early GCT. Bronwyn Baird DO Obesity in 09/24/2015 04/26/2017 [facility]2017 Overview: Smoking cessation encouraged. Bronwyn Baird DO documented as of this encounter (statuses as of 09/30/2022) [facility] History of Past illness Narrative* Problem Noted Date Resolved Date Rubella non-immune status, antepartum 12/24/2016 04/26/2017 Late care affecting 7 04/26/2017 Supervision of high risk in third trim fabian 12/17/2016 04/26/2017 Tobacco use in , antepartum 12/17/2016 04/26/2017 Short interval between pregn ancies affecting in third trimester, antepartum 12/17/2016 04/26/2017 Encounter for supervision of normal in third trimester 09/24/2015 04/26/2017 Nausea/vomiting in 09/24/2015 Overview: When improved will need early GCT. Bronwyn Baird DO Obesity in 09/24/2015 04/26/2017 Tobacco smoking [facility] 09/24/2015 04/26/2017 Overview: Smoking cessation encouraged. Bronwyn Baird DO documented as of this encounter (statuses as of 11/04/2022) [facility] History of Past illness Narrative* Problem Noted Date Resolved Date Rubella non-immune status, antepartum 12/24/2016 04/26/2017 Late care affecting 7 04/26/2017 Supervision of high risk in third trim fabian 12/17/2016 04/26/2017 Tobacco use in , antepartum 12/17/2016 04/26/2017 Short interval between pregn ancies affecting in third trimester, antepartum 12/17/2016 04/26/2017 Encounter for supervision of normal in third trimester 09/24/2015 04/26/2017 Nausea/vomiting in 09/24/2015 Overview: When improved will need early GCT. Bronwyn Baird DO Obesity in 09/24/2015 04/26/2017 Tobacco smoking affecting [facility] 09/24/2015 04/26/2017 Overview: Smoking cessation encouraged. Bronwyn Baird DO documented as of this encounter (statuses as of 11/05/2022) [facility] History of Past illness Narrative* Problem Noted Date Resolved Date Rubella non-immune status, antepartum 12/24/2016 04/26/2017 Late care affecting 7 04/26/2017 Supervision of high risk in third trim fabian 12/17/2016 04/26/2017 Tobacco use in , antepartum 12/17/2016 04/26/2017 Short interval between pregn ancies affecting in third trimester, antepartum 12/17/2016 04/26/2017 Encounter for supervision of normal in third trimester 09/24/2015 04/26/2017 Nausea/vomiting in 09/24/2015 Overview: When improved will need early GCT. Bronwyn Baird DO Obesity in 09/24/2015 04/26/2017 Tobacco smoking affecting [facility] 09/24/2015 04/26/2017 Overview: Smoking cessation encouraged. Bronwyn Baird DO documented as of this encounter (statuses as of 12/02/2022) [facility] History of Past illness Narrative* Problem Noted Date Resolved Date Rubella non-immune status, antepartum 12/24/2016 04/26/2017 Late care affecting 7 04/26/2017 Supervision of high risk in third trim fabian 12/17/2016 04/26/2017 Tobacco use in , antepartum 12/17/2016 04/26/2017 Short interval between pregn ancies affecting in third trimester, antepartum 12/17/2016 04/26/2017 Encounter for supervision of normal in third trimester 09/24/2015 04/26/2017 Nausea/vomiting in 09/24/2015 Overview: When improved will need early GCT. Bronwyn Baird DO Obesity in 09/24/2015 04/26/2017 Tobacco smoking affecting [facility] 09/24/2015 04/26/2017 Overview: Smoking cessation encouraged. Bronwyn Baird DO documented as of this encounter (statuses as of 01/17/2023) [facility] History of Past illness Narrative* Problem Noted Date Resolved Date Rubella non-immune status, antepartum 12/24/2016 04/26/2017 Late care affecting 7 04/26/2017 Supervision of high risk in third trim fabian 12/17/2016 04/26/2017 Tobacco use in , antepartum 12/17/2016 04/26/2017 Short interval between pregn ancies affecting in third trimester, antepartum 12/17/2016 04/26/2017 Encounter for supervision of normal in third trimester 09/24/2015 04/26/2017 Nausea/vomiting in 09/24/2015 Overview: When improved will need early GCT. Bronwyn Baird DO Obesity in 09/24/2015 04/26/2017 [facility] 04/26/2017 Overview: Smoking cessation encouraged. Bronwyn Baird DO documented as of this encounter (statuses as of 01/24/2023) [facility] History of Past illness Narrative* Problem Noted Date Resolved Date Rubella non-immune status, antepartum 12/24/2016 04/26/2017 Late care affecting 7 04/26/2017 Supervision of high risk in third trim fabian 12/17/2016 04/26/2017 Tobacco use in , antepartum 12/17/2016 04/26/2017 Short interval between pregn ancies affecting in third trimester, antepartum 12/17/2016 04/26/2017 Encounter for supervision of normal in third trimester 09/24/2015 04/26/2017 Nausea/vomiting in 09/24/2015 Overview: When improved will need early GCT. Bronwyn Baird DO Obesity in 09/24/2015 04/26/2017 [facility] 09/24/2015 04/26/2017 Overview: Smoking cessation encouraged. Bronwyn Baird DO documented as of this encounter (statuses as of 01/26/2023) [facility] History of Past illness Narrative* Problem Noted Date Diagnosed Date Resolved Date Rubella non-immune status, antepartum 12/24/2016 04/26/2017 Late care affecting 12/17/2016 04/26/2017 Supervision of high risk pre gnancy in third trimester 12/17/2016 04/26/2017 Tobacco use in , antepartum 12/17/2016 04/26/2017 Short interval between pregn ancies affecting in third trimester, antepartum 12/17/2016 04/26/2017 Encounter for supervision of normal in third trimester 09/24/2015 04/26/2017 Nausea/vomiting in 09/24/2015 04/28/2016 Overview: When improved will need early GCT. Bronwyn Baird, DO Obesity in 09/24/2015 017 Tobacco smoking affecting pr egnancy in first trimester 09/24/2015 04/26/2017 Overview: Smoking cessation encouraged. Bronwyn Baird DO documented as of this encounter (statuses as of 04/05/2023) [facility] History of Past illness Narrative* Problem Noted Date Diagnosed Date Resolved Date Rubella non-immune status, antepartum 12/24/2016 04/26/2017 Late care affecting 12/17/2016 04/26/2017 Supervision of high risk pre gnancy in third trimester 12/17/2016 04/26/2017 Tobacco use in , antepartum 12/17/2016 04/26/2017 Short interval between pregn ancies affecting in third trimester, antepartum 12/17/2016 04/26/2017 Encounter for supervision of normal in third trimester 09/24/2015 04/26/2017 Nausea/vomiting in 09/24/2015 04/28/2016 Overview: When improved will need early GCT. Bronwyn Baird DO Obesity in 09/24/2015 017 Tobacco smoking affecting pr egnancy in first trimester 09/24/2015 04/26/2017 Overview: Smoking cessation encouraged. Bronwyn Baird DO documented as of this encounter (statuses as of 06/07/2023) [facility] History of Past illness Narrative* Problem Noted Date Diagnosed Date Resolved Date Rubella non-immune status, antepartum 12/24/2016 04/26/2017 Late care affecting 12/17/2016 04/26/2017 Supervision of high risk pre gnancy in third trimester 12/17/2016 04/26/2017 Tobacco use in , antepartum 12/17/2016 04/26/2017 Short interval between pregn ancies affecting in third trimester, antepartum 12/17/2016 04/26/2017 Encounter for supervision of normal in third trimester 09/24/2015 04/26/2017 Nausea/vomiting in 09/24/2015 04/28/2016 Overview: When improved will need early GCT. Bronwyn Baird, DO Obesity in 09/24/2015 017 Tobacco smoking affecting pr egnancy in first trimester 09/24/2015 04/26/2017 Overview: Smoking cessation encouraged. Bronwyn Baird DO documented as of this encounter (statuses as of 06/21/2023) [facility] History of Past illness Narrative* Problem Noted Date Diagnosed Date Resolved Date Rubella non-immune status, antepartum 12/24/2016 04/26/2017 Late care affecting 12/17/2016 04/26/2017 Supervision of high risk pre gnancy in third trimester 12/17/2016 04/26/2017 Tobacco use in , antepartum 12/17/2016 04/26/2017 Short interval between pregn ancies affecting in third trimester, antepartum 12/17/2016 04/26/2017 Encounter for supervision of normal in third trimester 09/24/2015 04/26/2017 Nausea/vomiting in 09/24/2015 04/28/2016 Overview: When improved will need early GCT. Bronwyn Baird, Obesity in 09/24/2015 017 Tobacco smoking affecting pr egnancy in first trimester 09/24/2015 04/26/2017 Overview: Smoking cessation encouraged. Bronwyn Baird DO documented as of this encounter (statuses as of 06/24/2023) [facility] History of Past illness Narrative* Problem Noted Date Diagnosed Date Resolved Date Rubella non-immune status, antepartum 12/24/2016 04/26/2017 Late care affecting 12/17/2016 04/26/2017 Supervision of high risk pre gnancy in third trimester 12/17/2016 04/26/2017 Tobacco use in , antepartum 12/17/2016 04/26/2017 Short interval between pregn ancies affecting in third trimester, antepartum 12/17/2016 04/26/2017 Encounter for supervision of normal in third trimester 09/24/2015 04/26/2017 Nausea/vomiting in 09/24/2015 04/28/2016 Overview: When improved will need early GCT. Bronwyn Baird DO Obesity in 09/24/2015 017 Tobacco smoking affecting pr egnancy in first trimester 09/24/2015 04/26/2017 Overview: Smoking cessation encouraged. Bronwyn Baird DO documented as of this encounter (statuses as of 09/29/2023) [facility] History of Past illness Narrative* Problem Noted Date Diagnosed Date Resolved Date Rubella non-immune status, antepartum 12/24/2016 04/26/2017 Late care affecting 12/17/2016 04/26/2017 Supervision of high risk pre gnancy in third trimester 12/17/2016 04/26/2017 Tobacco use in , antepartum 12/17/2016 04/26/2017 Short interval between pregn ancies affecting in third trimester, antepartum 12/17/2016 04/26/2017 Encounter for supervision of normal in third trimester 09/24/2015 04/26/2017 Nausea/vomiting in 09/24/2015 04/28/2016 Overview: When improved will need early GCT. Bronwyn Baird DO Obesity in 09/24/2015 017 Tobacco smoking affecting pr egnancy in first trimester 09/24/2015 04/26/2017 Overview: Smoking cessation encouraged. Bronwyn Baird DO documented as of this encounter (statuses as of 10/12/2023) [facility] [place] [facility] Diagnosis Encounter for gynecological examination (general) (routine) without abnormal findings- Primary Screening for cervical cancer Screening for malignant neoplasm of the cervix Special screening examination for human papillomavirus (HPV) Menorrhagia with regular cycle Excessive or frequent menstruation Hidradenitis suppurativa Hidradenitis documented [facility] encounter [facility] [place] [facility]* Diagnosis Leukocytosis, unspecified type- Primary documented in this encounter [facility] note* Diagnosis Chronic bilateral low back pain, unspecified whether sciatica present- Primary Exacerbation of chronic back pain Backache, unspecified Anxiety and depression Dysthymic disorder Mood insomnia (HCC) [facility] [place] [facility] Diagnosis 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 Anxiety state, unspecified Chronic bilateral low back pain, unspecified whether sciatica present Anxiety and depression Dysthymic disorder Mood insomnia (HCC) Exacerbation of chronic back pain Backache, unspecified [facility] [place] [facility]* Diagnosis Anxiety and depression Dysthymic disorder 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 Anxiety state, unspecified [facility] [place] [facility]* Diagnosis Anxiety and depression Dysthymic disorder 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 Anxiety state, unspecified [facility] [place] [facility]* Diagnosis Wellness examination- Primary Chronic bilateral low back pain, unspecified whether sciatica present Exacerbation of chronic back pain Backache, unspecified Anxiety and depression Dysthymic disorder 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 Anxiety state, unspecified [facility] [place] [facility]* Diagnosis Hypertriglyceridemia- Primary Pure hyperglyceridemia [facility] [place] [facility]* Diagnosis Anxiety and depression- Primary Dysthymic disorder 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 Anxiety state, unspecified Chronic bilateral low back pain, unspecified whether sciatica present Pain in both thighs Left leg paresthesias Disturbance of skin sensation Bilateral leg paresthesia Disturbance of skin sensation documented in this encounter [facility] Summary Purpose Family History No Family History Records FoundNo Family History Records FoundNo Family History Records FoundNo Family History Records Found Advance Directives No Advanced Directives Records FoundNo Advanced Directives Records FoundNo Advanced Directives Records FoundNo Advanced Directives Records Found Reason for Referral Specialty Diagnoses / Procedures Referred By Jo ramirez Referred To Contact Diagnoses Hidradenitis suppurativa Procedures CONSULT TO SNOW PLOW OPERATOR INFECTIOUS DISEASE Sonia Castro MD [address] [place] [address] [place] [address] [place] [address] Referral ID Status Reason Start Date Expiration Date Visits Requested Visits Authorized [id number] Ref Not Required PCP Requested Referral 03/18/2022 03/18/2023 1 1 Specialty Diagnoses / Procedures Referred By Jo ramirez Referred To Contact [facility] Diagnoses Chronic bilateral low back pain, unspecified whether sciatica present Exacerbation of chronic back pain Procedures CONSULT TO PHYSICAL THERAPY PHYSICAL THERAPY EVALUATION HIGH COMPLEX 45 MINS Jaycee Adams, RADAMES.ACCOUNTING ADMINISTRATIVE ASSISTANT [address] [place] [address] [facility] [place] [address] [place] [address] Referral ID Status Reason Start Date Expiration Date Visits Requested Visits Authorized [id number] Pending Review Auto-Generat ed Referral 11/03/2022 11/03/2023 1 1 Specialty Diagnoses / Procedures Referred By Contac t Referred To Contact XR IMAGING Diagnoses Chronic bilateral low back pain, unspecified whether sciatica present Exacerbation of chronic back pain Procedures XR SACROILIAC JOINTS 2V AP PELVIS/FERGUESON RADIOLOGIC EXAMINATION SACROILIAC JNTS <3 VIEWS Jaycee Adams, VP [employer]ODUCT MARKET[employer].ACCOUNTING ADMINISTRATIVE ASSISTANT [address] [place] [address] Xr Imaging Referral ID Status Reason Start Date Expiration Date Visits Requested Visits Authorized [id number] Pending Review Auto-Generat ed Referral 11/03/2022 12/03/2023 1 1 Specialty Diagnoses / Procedures Referred By Contac t Referred To Contact XR IMAGING Diagnoses Chronic bilateral low back pain, unspecified whether sciatica present Exacerbation of chronic back pain Procedures XR LUMBAR GENERAL 3V AP/LAT/L5-S1 RADEX SPINE LUMBOSACRAL 2/3 VIEWS Jaycee Adams, VP PRODUCT MARKETING.ACCOUNTING ADMINISTRATIVE ASSISTANT [address] [place] [address] Xr Imaging Referral ID Status Reason Start Date Expiration Date Visits Requested Visits Authorized [id number] Pending Review Auto-Generat ed Referral 11/03/2022 12/03/2023 1 1 Additional Source Comments INFORMATION SOURCE (unrecogn ized section and content) DATE CREATED AUTHOR AUTHOR'S ORGANIZ ATION 04/14/2021 [facility] DATE CREATED AUTHOR AUTHOR'S ORGANIZ ATION 03/26/2023 [facility] DATE CREATED AUTHOR AUTHOR'S ORGANIZ ATION 10/01/2023 [facility] Source Comments (unrecognize d section and content) In the event this informatio n is protected by the Federal Confidentiality of Alcohol and Drug Abuse Patient Records regulations: The Federal rules restrict any use of the information to criminally investigate or prosecute any alcohol or drug abuse patient.[facility] the event this information is protected by the Federal Confidentiality of Alcohol and Drug Abuse Patient Records regulations: The Federal rules restrict any use of the information to criminally investigate or prosecute any alcohol or drug abuse patient.[facility] the event this information is protected by the Federal Confidentiality of Alcohol and Drug Abuse Patient Records regulations: The Federal rules restrict any use of the information to criminally investigate or prosecute any alcohol or drug abuse patient.[facility] the event this information is protected by the Federal Confidentiality of Alcohol and Drug Abuse Patient Records regulations: The Federal rules restrict any use of the information to criminally investigate or prosecute any alcohol or drug abuse patient.[facility] the event this information is protected by the Federal Confidentiality of Alcohol and Drug Abuse Patient Records regulations: The Federal rules restrict any use of the information to criminally investigate or prosecute any alcohol or drug abuse patient.[facility] the event this information is protected by the Federal Confidentiality of Alcohol and Drug Abuse Patient Records regulations: The Federal rules restrict any use of the information to criminally investigate or prosecute any alcohol or drug abuse patient.[facility] the event this information is protected by the Federal Confidentiality of Alcohol and Drug Abuse Patient Records regulations: The Federal rules restrict any use of the information to criminally investigate or prosecute any alcohol or drug abuse patient.[facility] the event this information is protected by the Federal Confidentiality of Alcohol and Drug Abuse Patient Records regulations: The Federal rules restrict any use of the information to criminally investigate or prosecute any alcohol or drug abuse patient.[facility] the event this information is protected by the Federal Confidentiality of Alcohol and Drug Abuse Patient Records regulations: The Federal rules restrict any use of the information to criminally investigate or prosecute any alcohol or drug abuse patient.[facility] the event this information is protected by the Federal Confidentiality of Alcohol and Drug Abuse Patient Records regulations: The Federal rules restrict any use of the information to criminally investigate or prosecute any alcohol or drug abuse patient.[facility] the event this information is protected by the Federal Confidentiality of Alcohol and Drug Abuse Patient Records regulations: The Federal rules restrict any use of the information to criminally investigate or prosecute any alcohol or drug abuse patient.[facility] the event this information is protected by the Federal Confidentiality of Alcohol and Drug Abuse Patient Records regulations: The Federal rules restrict any use of the information to criminally investigate or prosecute any alcohol or drug abuse patient.[facility] the event this information is protected by the Federal Confidentiality of Alcohol and Drug Abuse Patient Records regulations: The Federal rules restrict any use of the information to criminally investigate or prosecute any alcohol or drug abuse patient.[facility] the event this information is protected by the Federal Confidentiality of Alcohol and Drug Abuse Patient Records regulations: The Federal rules restrict any use of the information to criminally investigate or prosecute any alcohol or drug abuse patient.[facility] the event this information is protected by the Federal Confidentiality of Alcohol and Drug Abuse Patient Records regulations: The Federal rules restrict any use of the information to criminally investigate or prosecute any alcohol or drug abuse patient.[facility] Reason for Visit (unrecogniz ed section and content) Reason Comments Results Reason Comments mood follow up Reason Comments Appointment Reason Comments medication review Reason Onset Date Comments Refill Request 01/15/2023 Reason Comments Medication Problem Reason Comments Refill Request Reason Comments Yearly Exam Reason Comments Follow Up Specialty Diagnoses / Procedures Referred By Jo ramirez Referred To Contact FAMILY MEDICINE Diagnoses Medications and sleeping Procedures VIDEO PRIMARY EST Raul Campa, DO [address] [place] [address] Raul Campa, DO [address] [place] [address] Referral ID Status Reason Start Date Expiration Date Visits Requested Visits Authorized [id number] Pending Review OON/Self Pay Override 09/28/2023 01/05/2025 5 5 Reason Comments Covid Follow Up Care Teams (unrecognized sec tion and content) Supervisor Statement Clerks Relationship Specialty Start Date End Date Raul Campa, DO [address] [place] [address] PCP - General Family Medicine 01/17/13 Supervisor Statement Clerks Relationship Specialty Start Date End Date Raul Campa, DO [address] [place] [address] PCP - General Family Medicine 01/17/13 Supervisor Statement Clerks Relationship Specialty Start Date End Date Raul Campa, DO [address] [place] [address] PCP - General Family Medicine 01/17/13 Supervisor Statement Clerks Relationship Specialty Start Date End Date Raul Campa, DO [address] [place] [address] PCP - General Family Medicine 01/17/13 Supervisor Statement Clerks Relationship Specialty Start Date End Date Raul Campa, DO [address] [place] [address] PCP - General Family Medicine 01/17/13 Supervisor Statement Clerks Relationship Specialty Start Date End Date Raul Campa, DO [address] [place] [address] PCP - General Family Medicine 01/17/13 Supervisor Statement Clerks Relationship Specialty Start Date End Date Raul Campa DO [address] [facility] [address] PCP - General Family Medicine 01/17/13 Supervisor Statement Clerks Relationship Specialty Start Date End Date Raul Campa DO [address] [facility] [address] PCP - General Family Medicine 01/17/13 Supervisor Statement Clerks Relationship Specialty Start Date End Date Raul Campa DO [address] [facility] [address] PCP - General Family Medicine 01/17/13 Supervisor Statement Clerks Relationship Specialty Start Date End Date Raul Campa DO [address] [facility] [address] PCP - General Family Medicine 01/17/13 Supervisor Statement Clerks Relationship Specialty Start Date End Date Raul Campa DO [address] [facility] [place] [address] PCP - General Family Medicine 01/17/13 Supervisor Statement Clerks Relationship Specialty Start Date End Date Raul Campa DO [address] [facility] [place] [address] PCP - General Family Medicine 01/17/13 Supervisor Statement Clerks Relationship Specialty Start Date End Date Raul Campa DO [address] [facility] [address] PCP - General Family Medicine 01/17/13 FOR RECORDS PERTAINING TO PATIENTS WHO ARE OR HAVE BEEN ENROLLED IN A CHEMICAL DEPENDENCY/SUBSTANCEABUSE PROGRAM, SOME INFORMATION MAY BE OMITTED. This clinical summary was aggregated from multiple sources. Caution should be exercised in using it in the provision of clinical care. This summary normalizes information from multiple sources, and as a consequence, information in this document may materially change the coding, format and clinical context of patient data. In addition, data may be omitted in some cases. CLINICAL DECISIONS SHOULD BE BASED ON THE PRIMARY CLINICAL RECORDS. [facility]. provides no warranty or guarantee of the accuracy or completeness of information in this document.
== END 2023-10-12 19:43 | disposition home or self-care (01) ==
PROVIDERS: Emergency Provider Emergency Medicine; PCP Student in an Organized Health Care Education/Training Program; Visit Provider Emergency Medicine
DX: R06.02 Shortness of breath (principal); F17.210 Nicotine dependence, cigarettes, uncomplicated
CPT/HCPCS: 71045; 80048; 85025; 85379; 93005; 94760; 99282; A4216